=== PATIENT | male | born 1945 | race Caucasian/White ===

== ENCOUNTER → 2022-03-23 | Outpatient (CLI) | payer MEDICARE ==
[~2022-03-23] MED LIST: ACTOS30 MG PO; AMARYL2 MG PO; AZITHROMYCIN500 MG PO; CEFUROXIME250 MG PO; CELEBREX200 MG PO; GLUCOPHAGE1000 MG PO; LEVAQUIN750 MG PO; LIPITOR40 MG PO; LISINOPRIL5 MG PO; METFORMIN HCL500 MG PO; METOPROLOL SUCC50 MG PO; OMEPRAZOLE20 MG PO; ULTRAM50 MG PO; VICTOZA 1818 MG/3 ML SQ; ZETIA 10 MG TAB10 MG PO
== END ==
LOC: KOH-I 10:11
DX: M25.511 Pain in right shoulder (principal); M19.011 Primary osteoarthritis, right shoulder
CPT/HCPCS: 73030